=== PATIENT | male | born 1990 | race African-American/Black ===

== ENCOUNTER 2025-05-10 21:51 | Emergency (ER) | payer MEDICAID ==
[~2025-05-10] VITALS: Ht 188 cm; Wt 81.6 kg
[2025-05-10 22:18] LABS: PLATELET COUNT (AUTO) 193 K/uL (150-450); RED BLOOD CELL COUNT(AUTO) 4.28 MIL/uL (4.5-6.0); RED CELL DISTRIBUTION WIDTH 14.4 % (11.5-15.0); WHITE BLOOD COUNT (AUTO) 4.1 K/uL (4.3-11.0)
[2025-05-10] MEDS ORDERED: IV NS 0.9% 1,000 ML BAG IV ONE (22:30)
[2025-05-10 22:32] LABS: CALCIUM, SERUM 8.3 mg/dL (8.5-10.1); CREATININE 1.0 mg/dL (0.6-1.3); SODIUM SERUM 143.0 mmol/L (136-145); UREA NITROGEN, BLOOD 14.0 mg/dL (7-18)
[2025-05-10 22:40] LABS: ALCOHOL, BLOOD < 3 mg/dL (0-10)
[2025-05-11 00:12] LABS: APPEARANCE,URINE CLEAR (CLEAR); BLOOD, URINE NEGATIVE Ery/uL (NEGATIVE); LEUKOCYTE ESTERASE ,URINE NEGATIVE (NEGATIVE); NITRITE, URINE NEGATIVE (NEGATIVE); UGLUCOSE TRACE mg/dL (NEGATIVE)
[2025-05-11 00:22] LABS: BARBITURATE, URINE NEGATIVE (NEGATIVE); BENZODIAZEPINE, URINE NEGATIVE (NEGATIVE); COCCAINE, URINE NEGATIVE (NEGATIVE); OPIATE, URINE NEGATIVE (NEGATIVE)
[2025-05-11 00:25] LABS: AMPHETAMINE, URINE POSITIVE (NEGATIVE); CANNABINOID, URINE POSITIVE (NEGATIVE)
[2025-05-11 01:01] LABS: ADD URINE CULTURE NO; SQUAMOUS EPITHELIAL CELL,UR 0-2 /HPF (None Seen)
[2025-05-11 02:04] VITALS: BP 143/92; TEMP 98.9; O2SAT 99
== END 2025-05-11 02:29 | disposition home or self-care (01) ==
LOC: ER 21:53
DX: F19.10 Other psychoactive substance abuse, uncomplicated (principal); R73.9 Hyperglycemia, unspecified; Z79.899 Other long term (current) drug therapy
CPT/HCPCS: 36415; 80048-TC; 81001; 82010-TC; 82803-TC; 82962-TC; 85025-TC; G0480